=== PATIENT | female | born 1950 | race Caucasian/White ===

== ENCOUNTER 2019-09-20 11:33 | Emergency (ER) | payer MEDICARE ==
[2019-09-20] MEDS ORDERED: MORPHINE SULFATE 4 MG INJ IV ONE (12:24)
[2019-09-20] MEDS ORDERED: Zofran 4 MG/2 ML VIAL IV ONE (12:24)
[2019-09-20] MEDS ORDERED: Zofran 4 MG/2 ML VIAL ONE (12:28)
[2019-09-20] MEDS ORDERED: MORPHINE SULFATE 4 MG INJ ONE (12:29)
--- NOTE | 2019-09-20 12:37 | ERPHSYRPT ---
- History of Present Illness Time Seen by Provider: 09/20/19 11:56 Historian: patient Exam Limitations: no limitations Patient Subjective Stated Complaint: Pt states "I have had 10 inches of my colon removed and half of my rectum removed 6 years ago and ever since then I have had problems with diarrhea and constipation. i have a pocket that stool gets caught in on the left side about 5 inches up and it has been hurting me for some time now." Triage Nursing Assessment: Pt presented tearful, moaning, speaks in clear full sentences pt in no apparent respiratory distress. Pt ambulates with a slow shuffling gait. Physician History: 69 years old female with history of partial colectomy/rectal resection 6 years ago for colon cancer presented in the ER with chief complaint of rectal pain and left flank pain for 1 week with progressive worsening. Patient is complaining more pain in the posterior rectal area moderate intensity sharp in nature and is unable to have a bowel movement despite taking [id number] laxatives and Fleet enema. Patient reports she has problem with bowel movements and has alternating diarrhea with constipation since her surgery. Last regular bowel movement was a week ago and since then has mild watery stool after taking laxative. Denies any vomiting. No fever or chills reported. Timing/Duration: week(s) (1), gradual onset, worse Activities at Onset: rest Quality: fullness, pressure Abdominal Pain Onset Location: LLQ, flank, other (rectal) Pain Radiation: no radiation Severity of Pain-Max: moderate Severity of Pain-Current: moderate Modifying Factors: Improves With: nothing Associated Symptoms: denies symptoms Allergies/Adverse Reactions: No Known Drug Allergies Allergy (Verified 09/20/19 11:54) Hx Tetanus, Diphtheria Vaccination/Date Given: No Hx Influenza Vaccination/Date Given: Yes Hx Pneumococcal Vaccination/Date Given: Yes Immunizations Up to Date: Yes Travel Risk - International Travel Have you traveled outside of the country in past 3 weeks: No - Coronavirus Screening Are you exhibiting any of the following symptoms?: No Close contact with a COVID-19 positive Pt in past 14-21 Days: No - Review of Systems Constitutional: No Symptoms Eyes: No Symptoms Ears, Nose, & Throat: No Symptoms Respiratory: No Symptoms Cardiac: No Symptoms Abdominal/Gastrointestinal: Abdominal Pain, Constipation Genitourinary Symptoms: No Symptoms Musculoskeletal: No Symptoms Skin: No Symptoms Neurological: No Symptoms Psychological: No Symptoms Endocrine: No Symptoms Hematologic/Lymphatic: No Symptoms Immunological/Allergic: No Symptoms - Past Medical History Neurological History: Migraines, TIA Cardiac History: Angina, Hypertension, Other Respiratory History: COPD Endocrine Medical History: No Pertinent History Musculoskeletal History: Osteoarthritis Other Medical History: On 3L O2 at night and uses during day as needed. She has been on predisone from February to July for her lungs. L TKA 3 years ago, notes numbness along the lateral knee that is new in the last month. 2 leaky heart valves. - Past Surgical History Past Surgical History: Yes Other Surgical History: 10 inches of colon and half of rectum removed. - Social History Smoking Status: Never smoker Exposure to second hand smoke: No Drug Use: none Patient Lives Alone: No - Female History Hx Now: No - Nursing Vital Signs Nursing Vital Signs: Initial Vital Signs Temperature 98.5 F 09/20/19 11:46 Pulse Rate 88 09/20/19 11:46 Respiratory Rate 22 09/20/19 11:46 Blood Pressure 203/113 09/20/19 11:46 O2 Sat by Pulse Oximetry 98 09/20/19 11:46 Pain Scale Pain Intensity 4 - Physical Exam General Appearance: no apparent distress Eye Exam: PERRL/EOMI, eyes nml inspection Ears, Nose, Throat Exam: normal ENT inspection Neck Exam: normal inspection, supple, full range of motion Respiratory Exam: normal breath sounds, lungs clear Cardiovascular Exam: regular rate/rhythm, normal heart sounds Gastrointestinal/Abdomen Exam: soft, normal bowel sounds, tenderness (Mild tenderness in left flank and left lower quadrant with no guarding or rebound) Back Exam: normal inspection Extremity Exam: normal inspection, pelvis stable Neurologic Exam: alert, oriented x 3, cooperative Skin Exam: normal color SpO2 Interpretation: normal SpO2: 98 O2 Delivery: Room Air Ordered Tests: Active Orders 24 hr Category Date Time Status IV Insertion STAT Care 09/20/19 12:24 Active ABDOMEN AND PELVIS W CONTRAST [CT] Routine Exams 09/20/19 14:02 Completed CBC W DIFF Stat Lab 09/20/19 12:46 Completed CMP Stat Lab 09/20/19 12:46 Completed CULTURE,URINE Stat Lab 09/20/19 12:42 Received LIPASE Stat Lab 09/20/19 12:46 Completed Medication Summary Generic Name Dose Route Start Last Admin Trade Name Freq PRN Reason Stop Dose Admin Sodium Chloride 1,000 mls @ 999 mls/hr 09/20/19 16:04 09/20/19 16:07 Sodium Chloride 0.9% 1000 Ml IV 09/20/19 17:04 999 mls/hr .Q1H1M STA Administration Discontinued Medications Generic Name Dose Route Start Last Admin Trade Name Susi PRN Reason Stop Dose Admin Sodium Chloride Confirm 09/20/19 16:05 Sodium Chloride 0.9% 1000 Ml Administered 09/20/19 16:06 Dose 1,000 mls @ ud .ROUTE .STK-MED ONE Morphine Sulfate 4 mg 09/20/19 12:24 09/20/19 12:36 Morphine Sulfate 4 Mg Inj IV 09/20/19 12:25 4 mg STAT ONE Administration Morphine Sulfate Confirm 09/20/19 12:29 Morphine Sulfate 4 Mg Inj Administered 09/20/19 12:30 Dose 4 mg .ROUTE .STK-MED ONE Ondansetron HCl 4 mg 09/20/19 12:24 09/20/19 12:36 Zofran 4 Mg/2 Ml Vial IV 09/20/19 12:25 4 mg STAT ONE Administration Ondansetron HCl Confirm 09/20/19 12:28 Zofran 4 Mg/2 Ml Vial Administered 09/20/19 12:29 Dose 4 mg .ROUTE .STK-MED ONE Lab/Rad Data: Laboratory Result Diagrams 09/20/19 12:46 09/20/19 12:46 Laboratory Results 09/20/19 09/20/19 Range/Units 12:46 12:46 WBC 6.8 (4.0-10.5) K/mm3 RBC 4.37 (4.1-5.4) M/mm3 Hgb 14.0 (12.0-16.0) gm/dl Hct 41.6 (35-47) % MCV 95.2 (78-100) fl MCH 32.0 (26-32) pg MCHC 33.7 (32-36) g/dl RDW 12.7 (11.5-14.0) % Plt Count 235 (150-450) K/mm3 MPV 10.1 (7.5-11.0) fl Gran % 57.2 (36.0-66.0) % Eos # (Auto) 0.31 (0-0.5) Absolute Lymphs (auto) 1.96 (1.0-4.6) Absolute Monos (auto) 0.56 (0.0-1.3) Lymphocytes % 29.0 (24.0-44.0) % Monocytes % 8.3 (0.0-12.0) % Eosinophils % 4.6 (0.00-5.0) % Basophils % 0.9 (0.0-0.4) % Absolute Granulocytes 3.88 (1.4-6.9) Basophils # 0.06 (0-0.4) Sodium 136 L (137-145) mmol/L Potassium 3.9 (3.5-5.1) mmol/L Chloride 105 (98-107) mmol/L Carbon Dioxide 25 (22-30) mmol/L Anion Gap 10.0 (5-15) MEQ/L BUN 19 H (7-17) mg/dL Creatinine 0.93 (0.52-1.04) mg/dL Estimated GFR > 60.0 ML/MIN Glucose 101 (74-106) mg/dL Calcium 9.4 (8.4-10.2) mg/dL Total Bilirubin 1.20 (0.2-1.3) mg/dL AST 25 (14-36) U/L ALT 15 (0-35) U/L Alkaline Phosphatase 82 (38-126) U/L Serum Total Protein 6.8 (6.3-8.2) g/dL Albumin 4.1 (3.5-5.0) g/dL Lipase 280 (23-300) U/L - Progress Progress: improved, pain not gone completely, re-examined Progress Note: 09/20/19 16:33 69 years old is evaluated for abdominal pain with previous resection anastomosis. She is given IV fluid and pain medications. On reevaluation her pain is better. She has normal white count, grossly unremarkable chemistries. CT abdomen pelvis with contrast showed jejunal ileus versus enteritis and right/transverse colon fecal load. I believe patient has been taking a lot of laxatives and because of that she is having this enteritis picture. I have discussed with Dr. Kwok, recommended transfer versus discussion with primary surgeon. I have discussed with Dr. Powers, reviewed patient presentation and work-up findings, recommended good hydration, holding off on laxatives and outpatient follow-up with him tomorrow at 10 AM at clinic. On repeated evaluation patient pain is much better. She has bowel sounds. Patient does not want to go to [facility] today. But she will go there tomorrow. I would give her pain medication as per Dr. Powers's recommendation and outpatient follow-up tomorrow. Discussed sign symptoms of worsening needing return to ER which she seems understanding. Stable for discharge. Discussed with Dr.: Other (Dr. Kwok and Dr. Powers "[facility] ") Counseled pt/family regarding: lab results, diagnosis, need for follow-up, rad results - Departure Departure Disposition: Home Clinical Impression: Ileus, unspecified Constipation Qualifiers: Constipation type: unspecified constipation type Qualified Code(s): K59.00 - Constipation, unspecified Condition: Stable Critical Care Time: No Referrals: EVELINE VIEIRA, DEAF INTERPRETER [Primary Care Provider] - HOLDEN POWERS MD [NON-STAFF PHY W/O PRIVILEGES] - (Go to his office tomorrow at 10 AM.) Instructions: Constipation, Adult (DC) Additional Instructions: Drink plenty of fluids. Take pain medications as needed. Return to ER for intractable abdominal pain/vomiting/fever or chills. Prescriptions: Hydrocodone/APAP 5-325 Tab^^^ [[place] 5-325 Tablet^^^] 1 tab PO Q6HPRN PRN #10 tablet MDD 6 PRN Reason: Pain
[2019-09-20 12:50] LABS: Absolute Neutrophil Ct (ANC) 3.88 (1.4-6.9); BASOPHIL % 0.9 % (0.0-0.4); Basophil (Absolute #) 0.06 (0-0.4); Eosinophil % 4.6 % (0.00-5.0); Eosinophil (Absolute #) 0.31 (0-0.5); Hematocrit 41.6 % (35-47); Lymphocyte (Absolute #) 1.96 (1.0-4.6); Mean Cell Volume 95.2 fl (78-100); Mean Corpuscular Hgb Concent. 33.7 g/dl (32-36); Mean Platelet Volume 10.1 fl (7.5-11.0); Monocyte (Absolute #) 0.56 (0.0-1.3); Monocytes % 8.3 % (0.0-12.0); Neutrophil % 57.2 % (36.0-66.0); Platelet Count 235 K/mm3 (150-450); Red Blood Count 4.37 M/mm3 (4.1-5.4); Red Cell Distribution Width 12.7 % (11.5-14.0); White Blood Count 6.8 K/mm3 (4.0-10.5)
[2019-09-20 13:00] LABS: ALBUMIN 4.1 g/dL (3.5-5.0); ALKALINE PHOSPHATASE 82 U/L (38-126); BLOOD UREA NITROGEN 19 mg/dL (7-17); CHLORIDE 105 mmol/L (98-107); Calcium 9.4 mg/dL (8.4-10.2); Carbon Dioxide 25 mmol/L (22-30); Creatinine 1 0.93 mg/dL (0.52-1.04); Glucose 101 mg/dL (74-106); LIPASE 280 U/L (23-300); Potassium 3.9 mmol/L (3.5-5.1); SGOT/AST 25 U/L (14-36); SGPT/ALT 15 U/L (0-35); SODIUM 136 mmol/L (137-145); Total Protein 6.8 g/dL (6.3-8.2)
[2019-09-20 14:38] VITALS: O2SAT 98
--- NOTE | 2019-09-20 14:54 | XRAY ---
Indication: Rectal pain. History colon cancer with resection. Multiple contiguous axial images obtained through the abdomen and pelvis using 80 cc Isovue 370 contrast only. Comparison: None Lung bases demonstrates mild right middle lobe and lingula subsegmental atelectasis/scarring. Small right lower lobe calcified granuloma. No infiltrate or effusion. Heart is not enlarged. Small hiatal hernia. Noncontrasted stomach and bowel loops appear nonobstructed. Left mid abdomen jejunal bowel loop mildly fluid distended up to 2.4 cm diameter with minimal wall thickening/enhancement unchanged on delayed imaging either focal ileus versus enteritis. Appendectomy reported. Mild fecal debris predominantly in the ascending and transverse colon. Rectosigmoid anastomosis intact. No free fluid/air. Remaining liver, gallbladder, pancreas, spleen, adrenal glands, kidneys, ureters, bladder, and uterus appear unremarkable. Mild aortoiliac calcifications. No AAA or pathologic retroperitoneal lymphadenopathy. Osseous structures demonstrates mild osteopenia, mild/moderate degenerative changes throughout the lumbar spine and pectus excavatum deformity. Small fatty left inguinal hernia. Impression: 1. Left mid abdomen jejunal ileus versus enteritis. 2. Mild fecal stasis predominantly right hemicolon. 3. Small hiatal hernia, small fatty left inguinal hernia, and chronic bony findings.
[2019-09-20 15:33] VITALS: PULSE 61
[2019-09-20] MEDS ORDERED: Sodium Chloride 0.9% 1000 ML 1,000 ML IV STA (16:04)
[2019-09-20] MEDS ORDERED: Sodium Chloride 0.9% 1000 ML 1,000 ML ONE (16:05)
[2019-09-20 16:45] VITALS: BP 188/97
== END 2019-09-20 17:07 | disposition home or self-care (01) ==
LOC: ED 11:33
DX: K56.7 Ileus, unspecified (principal); K59.00 Constipation, unspecified; Z90.49 Acquired absence of other specified parts of digestive tract; Z85.038 Personal history of other malignant neoplasm of large intestine; I10 Essential (primary) hypertension; J44.9 Chronic obstructive pulmonary disease, unspecified; R10.9 Unspecified abdominal pain
CPT/HCPCS: 36000; 36415; 74177; 80053; 83690; 85025; 87086; 96360; 96374; 96375; 99284; J2270; J2405

== ENCOUNTER 2021-04-25 11:05 | Emergency (ER) | payer MEDICARE ==
--- NOTE | 2021-04-25 11:57 | ERPHSYRPT ---
- History of Present Illness Historian: patient Exam Limitations: other (Poor historian) Patient Subjective Stated Complaint: Pt states " I have been having left sided belly pain and diarrhea. I have been nauseous but not throwing up. I have been bleeding when going to the bathroom." Triage Nursing Assessment: Pt alert and oriented x3, pt presents to ER in wheelchair with an assist of one to the cot. Pt c/o L sided abdominal pain with slight nausea. pt denies vomiting but has been having episodes of diarrhea for 2 days. pt c/o bright red bloody stools. Last bowel movement was this morning. Physician History: 71 yo wf w hematochezia starting yesterday. She denies melena and has mild diffuse abdominal pain. Pt denies N/V and denies diarrhea/fever/chest pain. She is not on an anticoagulant. She has a mild cough. Timing/Duration: yesterday Activities at Onset: other (Bowel movement) Quality: cramping (Mild diffuse) Abdominal Pain Onset Location: generalized abdomen Pain Radiation: no radiation Severity of Pain-Max: moderate Severity of Pain-Current: mild Modifying Factors: Improves With: defecating. Worsens With: analgesics, antaci ds, breathing, coughing, eating, exercise, lying down, movement, palpation, rest, urinating, vomiting, position, walking Associated Symptoms: No back, No chest pain, No diaphoresis, No diarrhea, No fever/chills, No fatigue, No headache, No heartburn, No loss of appetite, No nausea, No neck pain, No rash, No shortness of breath, No syncope, No vomiting, No weakness Previous symptoms: no prior history Allergies/Adverse Reactions: No Known Drug Allergies Allergy (Verified 09/20/19 11:54) Home Medications: Atorvastatin Calcium 40 mg PO 04/25/21 [History] Buspirone HCl 10 mg PO 04/25/21 [History] Carvedilol [Coreg] 25 mg PO 04/25/21 [History] Escitalopram Oxalate 10 mg [Lexapro 10 MG] 20 mg PO 04/25/21 [History] Famotidine 20 mg PO 04/25/21 [History] Fluticasone/Vilanterol [Breo Ellipta 200-25 Mcg INH] 04/25/21 [History] Ranolazine 500 MG [Ranexa 500 MG] 500 mg PO 04/25/21 [History] Hx Tetanus, Diphtheria Vaccination/Date Given: No Hx Influenza Vaccination/Date Given: Yes Hx Pneumococcal Vaccination/Date Given: Yes Immunizations Up to Date: Yes Travel Risk - International Travel Have you traveled outside of the country in past 3 weeks: No - Coronavirus Screening Are you exhibiting any of the following symptoms?: No Close contact with a COVID-19 positive Pt in past 14-21 Days: No - Vaccine Status Have you recieved a Covid-19 vaccination: Yes Pattern Changer: Moderna - Vaccination Dates Date of 2cond Vaccination (if applicable): May 2020 - Review of Systems Constitutional: No Symptoms Eyes: No Symptoms Ears, Nose, & Throat: No Symptoms Respiratory: No Symptoms, Cough Cardiac: No Symptoms Abdominal/Gastrointestinal: Abdominal Pain, Hematochezia, No Nausea, No Vom iting, No Diarrhea, No Constipation, No Hematemesis, No Melena Genitourinary Symptoms: No Symptoms Musculoskeletal: No Symptoms Skin: No Symptoms Neurological: No Symptoms Psychological: No Symptoms Endocrine: No Symptoms Hematologic/Lymphatic: No Symptoms Immunological/Allergic: No Symptoms - Past Medical History Neurological History: Migraines, TIA Cardiac History: Angina, Hypertension, Other Respiratory History: COPD Endocrine Medical History: No Pertinent History Musculoskeletal History: Osteoarthritis Psycho-Social History: Depression Other Medical History: On 3L O2 at night and uses during day as needed. She has been on predisone from February to July for her lungs. L TKA 3 years ago, notes numbness along the lateral knee that is new in the last month. 2 leaky heart valves. - Past Surgical History Past Surgical History: Yes Other Surgical History: 10 inches of colon and half of rectum removed. - Social History Smoking Status: Never smoker Exposure to second hand smoke: No Drug Use: none Patient Lives Alone: No Significant Family History: no pertinent family hx - Nursing Vital Signs Nursing Vital Signs: Initial Vital Signs Temperature 97.4 F 04/25/21 11:19 Pulse Rate 104 H 04/25/21 11:19 Respiratory Rate 14 04/25/21 11:19 Blood Pressure 149/87 04/25/21 11:19 O2 Sat by Pulse Oximetry 97 04/25/21 11:19 Pain Scale Pain Intensity 0 Hypertension - Physical Exam General Appearance: no apparent distress Eye Exam: PERRL/EOMI, eyes nml inspection Ears, Nose, Throat Exam: normal ENT inspection, TMs normal, pharynx normal, moist mucous membranes Neck Exam: normal inspection, non-tender, supple, full range of motion, No meningismus, No mass Respiratory Exam: normal breath sounds, lungs clear, airway intact, No r espiratory distress Cardiovascular Exam: regular rate/rhythm, normal peripheral pulses, No murmur Gastrointestinal/Abdomen Exam: soft, normal bowel sounds, tenderness (Mild diffuse TTP) Back Exam: normal inspection, normal range of motion, No CVA tenderness, No vertebral tenderness Extremity Exam: normal inspection, normal range of motion Neurologic Exam: alert, oriented x 3, cooperative, normal mood/affect, nml cerebellar function, nml station & gait, sensation nml Skin Exam: normal color, warm, dry Lymphatic Exam: No adenopathy SpO2 Interpretation: normal SpO2: 97 O2 Delivery: Room Air - Course Nursing assessment & vital signs reviewed: Yes - CT Exams Abdomen/Pelvis CT Interpretation: Discussed w/radiologist (Jejunal enteritis) Ordered Tests: Active Orders 24 hr Category Date Time Status ABDOMEN AND PELVIS W CONTRAST [CT] Stat Exams 04/25/21 13:05 Completed AMYLASE Stat Lab 04/25/21 12:16 Completed CBC W DIFF Stat Lab 04/25/21 12:16 Completed CMP Stat Lab 04/25/21 12:16 Completed COVID AG-BINAX NOW RAPID TEST Stat Lab 04/25/21 12:30 Completed CULTURE,URINE Stat Lab 04/25/21 14:15 Received LIPASE Stat Lab 04/25/21 12:16 Completed Manual Differential NC Stat Lab 04/25/21 12:16 Completed PROTIME WITH INR Stat Lab 04/25/21 11:48 Completed PTT Stat Lab 04/25/21 11:48 Completed TROPONIN Q3H Lab 04/25/21 12:16 Completed UA W/RFX UR CULTURE Stat Lab 04/25/21 14:15 Completed Lab/Rad Data: Laboratory Result Diagrams 04/25/21 12:16 04/25/21 12:16 Laboratory Results 04/25/21 04/25/21 04/25/21 Range/Units 14:15 12:30 12:16 WBC (4.0-10.5) K/mm3 RBC (4.1-5.4) M/mm3 Hgb (12.0-16.0) gm/dl Hct (35-47) % MCV (78-100) fl MCH (26-32) pg MCHC (32-36) g/dl RDW (11.5-14.0) % Plt Count (150-450) K/mm3 MPV (7.5-11.0) fl Segmented Neutrophils (36.0-66.0) % Lymphocytes (Manual) (24-44) % Monocytes (Manual) (0.0-12.0) % Basophils (Manual) (0.0-1.0) % Platelet Estimate (NORMAL) RBC Morphology PT (9.4-12.5) SECONDS INR (0.8-3.0) APTT (25.1-36.5) SECONDS Sodium (137-145) mmol/L Potassium (3.5-5.1) mmol/L Chloride (98-107) mmol/L Carbon Dioxide (22-30) mmol/L Anion Gap (5-15) MEQ/L BUN (7-17) mg/dL Creatinine (0.52-1.04) mg/dL Estimated GFR ML/MIN Glucose (74-106) mg/dL Calcium (8.4-10.2) mg/dL Total Bilirubin (0.2-1.3) mg/dL AST (14-36) U/L ALT (0-35) U/L Alkaline Phosphatase (38-126) U/L Troponin I < 0.012 (0.000-0.034) ng/mL Serum Total Protein (6.3-8.2) g/dL Albumin (3.5-5.0) g/dL Amylase (30-110) U/L Lipase (23-300) U/L Urine Color YELLOW Urine Appearance CLOUDY Urine pH 6.0 Ur Specific [place] 1.024 Urine Protein NEGATIVE Urine Ketones TRACE Urine Blood SMALL Urine Nitrite NEGATIVE Urine Bilirubin NEGATIVE Urine Urobilinogen NEGATIVE Ur Leukocyte Esterase MODERATE Urine WBC (Auto) 26-50 Urine RBC (Auto) 11-15 U Hyaline Cast (Auto) U Epithel Cells (Auto) NONE Urine Bacteria (Auto) NONE U Non-Squamous Epi Cells Calcium Oxalate Crystal Leucine Crystals Cystine Crystals Uric Acid Cryst (Auto) Triple Phos Crystals Amorphous Crystals Fatty Casts Granular Casts (Auto) Waxy Casts (Auto) RBC Casts (Auto) WBC Casts Urine Mucus (Auto) U Trichomonas (Auto) Urine Yeast (Auto) Ur Yeast w Hyphae Urine Yeast (Budding) Urine Sperm (Auto) Ur Oval Fat Bodies Auto Urine Culture Reflexed YES Urine Glucose NEGATIVE SARS-CoV-2 Ag (Rapid) NEGATIVE (NEGATIVE) 04/25/21 04/25/21 04/25/21 Range/Units 12:16 12:16 11:49 WBC 16.7 H (4.0-10.5) K/mm3 RBC 4.48 (4.1-5.4) M/mm3 Hgb 14.6 (12.0-16.0) gm/dl Hct 42.8 (35-47) % MCV 95.5 (78-100) fl MCH 32.6 H (26-32) pg MCHC 34.1 (32-36) g/dl RDW 12.4 (11.5-14.0) % Plt Count 257 (150-450) K/mm3 MPV 10.1 (7.5-11.0) fl Segmented Neutrophils 77 H (36.0-66.0) % Lymphocytes (Manual) 12 L (24-44) % Monocytes (Manual) 10 (0.0-12.0) % Basophils (Manual) 1 (0.0-1.0) % Platelet Estimate NORMAL (NORMAL) RBC Morphology NORMAL PT (9.4-12.5) SECONDS INR (0.8-3.0) APTT (25.1-36.5) SECONDS Sodium 130 L (137-145) mmol/L Potassium 4.4 (3.5-5.1) mmol/L Chloride 97 L (98-107) mmol/L Carbon Dioxide 21 L (22-30) mmol/L Anion Gap 16.1 H (5-15) MEQ/L BUN 14 (7-17) mg/dL Creatinine 1.01 (0.52-1.04) mg/dL Estimated GFR 57.1 ML/MIN Glucose 112 H (74-106) mg/dL Calcium 9.5 (8.4-10.2) mg/dL Total Bilirubin 1.90 H (0.2-1.3) mg/dL AST 30 (14-36) U/L ALT 14 (0-35) U/L Alkaline Phosphatase 78 (38-126) U/L Troponin I (0.000-0.034) ng/mL Serum Total Protein 6.7 (6.3-8.2) g/dL Albumin 3.8 (3.5-5.0) g/dL Amylase 60 (30-110) U/L Lipase 91 (23-300) U/L Urine Color Cancelled Urine Appearance Cancelled Urine pH Cancelled Ur Specific [place] Cancelled Urine Protein Cancelled Urine Ketones Cancelled Urine Blood Cancelled Urine Nitrite Cancelled Urine Bilirubin Cancelled Urine Urobilinogen Cancelled Ur Leukocyte Esterase Cancelled Urine WBC (Auto) Cancelled Urine RBC (Auto) Cancelled U Hyaline Cast (Auto) Cancelled U Epithel Cells (Auto) Cancelled Urine Bacteria (Auto) Cancelled U Non-Squamous Epi Cells Cancelled Calcium Oxalate Crystal Cancelled Leucine Crystals Cancelled Cystine Crystals Cancelled Uric Acid Cryst (Auto) Cancelled Triple Phos Crystals Cancelled Amorphous Crystals Cancelled Fatty Casts Cancelled Granular Casts (Auto) Cancelled Waxy Casts (Auto) Cancelled RBC Casts (Auto) Cancelled WBC Casts Cancelled Urine Mucus (Auto) Cancelled U Trichomonas (Auto) Cancelled Urine Yeast (Auto) Cancelled Ur Yeast w Hyphae Cancelled Urine Yeast (Budding) Cancelled Urine Sperm (Auto) Cancelled Ur Oval Fat Bodies Auto Cancelled Urine Culture Reflexed Cancelled Urine Glucose Cancelled SARS-CoV-2 Ag (Rapid) (NEGATIVE) 04/25/21 Range/Units 11:48 WBC (4.0-10.5) K/mm3 RBC (4.1-5.4) M/mm3 Hgb (12.0-16.0) gm/dl Hct (35-47) % MCV (78-100) fl MCH (26-32) pg MCHC (32-36) g/dl RDW (11.5-14.0) % Plt Count (150-450) K/mm3 MPV (7.5-11.0) fl Segmented Neutrophils (36.0-66.0) % Lymphocytes (Manual) (24-44) % Monocytes (Manual) (0.0-12.0) % Basophils (Manual) (0.0-1.0) % Platelet Estimate (NORMAL) RBC Morphology PT 13.9 H (9.4-12.5) SECONDS INR 1.18 (0.8-3.0) APTT 26.8 (25.1-36.5) SECONDS Sodium (137-145) mmol/L Potassium (3.5-5.1) mmol/L Chloride (98-107) mmol/L Carbon Dioxide (22-30) mmol/L Anion Gap (5-15) MEQ/L BUN (7-17) mg/dL Creatinine (0.52-1.04) mg/dL Estimated GFR ML/MIN Glucose (74-106) mg/dL Calcium (8.4-10.2) mg/dL Total Bilirubin (0.2-1.3) mg/dL AST (14-36) U/L ALT (0-35) U/L Alkaline Phosphatase (38-126) U/L Troponin I (0.000-0.034) ng/mL Serum Total Protein (6.3-8.2) g/dL Albumin (3.5-5.0) g/dL Amylase (30-110) U/L Lipase (23-300) U/L Urine Color Urine Appearance Urine pH Ur Specific [place] Urine Protein Urine Ketones Urine Blood Urine Nitrite Urine Bilirubin Urine Urobilinogen Ur Leukocyte Esterase Urine WBC (Auto) Urine RBC (Auto) U Hyaline Cast (Auto) U Epithel Cells (Auto) Urine Bacteria (Auto) U Non-Squamous Epi Cells Calcium Oxalate Crystal Leucine Crystals Cystine Crystals Uric Acid Cryst (Auto) Triple Phos Crystals Amorphous Crystals Fatty Casts Granular Casts (Auto) Waxy Casts (Auto) RBC Casts (Auto) WBC Casts Urine Mucus (Auto) U Trichomonas (Auto) Urine Yeast (Auto) Ur Yeast w Hyphae Urine Yeast (Budding) Urine Sperm (Auto) Ur Oval Fat Bodies Auto Urine Culture Reflexed Urine Glucose SARS-CoV-2 Ag (Rapid) (NEGATIVE) - Progress Progress: improved Progress Note: 04/25/21 14:56 Pt refused pain meds during entire stay 04/25/21 17:13 Pt's BP labile during stay Counseled pt/family regarding: lab results, diagnosis, need for follow-up, rad results - Departure Departure Disposition: Home Clinical Impression: Enteritis, UTI (urinary tract infection) Condition: Stable Critical Care Time: No Referrals: EVELINE VIEIRA, TRACK INSPECTING SUPERVISOR [Primary Care Provider] - Follow up/PCP as directed Instructions: Acute Abdomen (Belly Pain), Adult (DC) Additional Instructions: Cipro twice a day for 1 week Flagyl twice a day for 1 week Bentyl as needed for pain Follow up with your family MD in 1-2 days Return to ER for increasing pain or temperature greater than 100.5 Prescriptions: Dicyclomine HCl 20 mg [Bentyl 20 mg] 20 mg PO Q6HPRN PRN #20 tablet PRN Reason: Pain Ciprofloxacin HCl [Cipro] 500 mg PO BID 7 Days #14 tablet Metronidazole 500 mg [Flagyl 500 MG] 500 mg PO BID 7 Days #14 tablet
[2021-04-25 12:23] LABS: Hematocrit 42.8 % (35-47); Hemoglobin 14.6 gm/dl (12.0-16.0); Mean Cell Volume 95.5 fl (78-100); Mean Corpuscular Hemoglobin 32.6 pg (26-32); Mean Corpuscular Hgb Concent. 34.1 g/dl (32-36); Mean Platelet Volume 10.1 fl (7.5-11.0); Platelet Count 257 K/mm3 (150-450); Red Blood Count 4.48 M/mm3 (4.1-5.4); Red Cell Distribution Width 12.4 % (11.5-14.0); White Blood Count 16.7 K/mm3 (4.0-10.5)
[2021-04-25 12:40] LABS: ALBUMIN 3.8 g/dL (3.5-5.0); ANION GAP 16.1 MEQ/L (5-15); BILIRUBIN,TOTAL 1.9 mg/dL (0.2-1.3); Calcium 9.5 mg/dL (8.4-10.2); Creatinine 1 1.01 mg/dL (0.52-1.04); EST GLOMERULAR FILTRATION RATE 57.1 ML/MIN; Potassium 4.4 mmol/L (3.5-5.1); Total Protein 6.7 g/dL (6.3-8.2)
[2021-04-25 12:40] LABS: INR 1.18 (0.8-3.0); PROTIME 13.9 SECONDS (9.4-12.5)
[2021-04-25 12:43] LABS: PTT 26.8 SECONDS (25.1-36.5)
[2021-04-25 12:54] LABS: COVID AG -BINAX NOW RAPID TEST NEGATIVE (NEGATIVE)
--- NOTE | 2021-04-25 13:56 | XRAY ---
Indication: Abdomen pain. Rectal blood. History colon and rectal carcinoma. Multiple contiguous axial images obtained through the abdomen and pelvis using 80 cc Isovue 370 contrast. Comparison: September 20, 2019. Lung bases again demonstrates bibasilar subsegmental atelectasis/scarring and small right base calcified granuloma. No infiltrate or effusion. Heart not enlarged. Stable small hiatal hernia. Noncontrasted stomach and bowel loops appear nonobstructed. Jejunal bowel loops are again mildly fluid distended with mild wall thickening/enhancement favoring enteritis. Tiny fluid left colic gutter presumed reactive. No walled off fluid collection or free air. Again appendectomy and rectal resection. Remaining liver, gallbladder, pancreas, spleen, adrenal glands, kidneys, ureters, bladder, and uterus appear unremarkable. Again mild scattered aortoiliac calcifications. No AAA or pathologic retroperitoneal lymphadenopathy. Osseous structures intact again with osteopenia, mild/moderate multilevel degenerative spondylosis, remote L5 superior endplate fracture, mild degenerative changes both hips, and pectus excavatum deformity. Stable small fatty left inguinal hernia. Impression: 1. Recurrent jejunal enteritis. 2. Stable small hiatal hernia, small fatty left inguinal hernia, and chronic bony findings.
[2021-04-25 14:02] VITALS: O2SAT 97
[2021-04-25 14:34] LABS: Appearance CLOUDY (CLEAR); Bilirubin NEGATIVE (NEGATIVE); Blood SMALL Ery/ul (0-5); Glucose NEGATIVE (NEGATIVE); Ketones TRACE (NEGATIVE); Leukocyte Esterase MODERATE (NEGATIVE); Nitrite NEGATIVE (NEGATIVE); Protein,Urine Dip NEGATIVE (Negative); Specific Gravity 1.024 (1.005-1.025); Urobilinogen NEGATIVE mg/dL (0-1); WBC 26-50 /HPF (0-5)
[2021-04-25 14:37] LABS: Basophil 1 % (0.0-1.0); Lymphocytes 12 % (24-44); Monocyte 10 % (0.0-12.0); Neutrophils 77 % (36.0-66.0); Total Cells Counted 100
[2021-04-25 14:38] LABS: Platelet Estimate NORMAL (NORMAL)
[2021-04-25 15:06] VITALS: BP 152/72; PULSE 93
== END 2021-04-25 15:12 | disposition home or self-care (01) ==
LOC: ED 11:05
DX: K52.9 Noninfective gastroenteritis and colitis, unspecified (principal); N39.0 Urinary tract infection, site not specified; R10.84 Generalized abdominal pain; K92.1 Melena; R05.9 Cough, unspecified; I10 Essential (primary) hypertension; J44.9 Chronic obstructive pulmonary disease, unspecified; Z99.81 Dependence on supplemental oxygen; Z79.899 Other long term (current) drug therapy; Z79.52 Long term (current) use of systemic steroids
CPT/HCPCS: 36415; 74177; 80053; 81001; 82150; 83690; 84484; 85025; 85610; 85730; 87077; 87086; 87186; 99000; 99284